=== PATIENT | male | born 1985 | race Caucasian/White ===

== ENCOUNTER → 2016-11-18 | Outpatient (REF) | payer BC | LOC: M LAB REF 10:18 | PROVIDERS: ATTEND Nurse Practitioner Family | DX: L08.9 Local infection of the skin and subcutaneous tissue, unspecified (principal) ==

== ENCOUNTER → 2017-05-06 | Outpatient (REF) | payer BC ==
[2017-05-06 13:26] LABS: BASO % 0.5 % (0.0-1.0); EOS # 0.2 10^3/uL (0.0-0.50); EOS % 3.2 % (0.0-3.0); IMMATURE GRANULOCYTE % 0.5 % (0-0); LYMPH # 2.2 10^3/uL (1.5-4.5); MEAN CORPUSCULAR HEMOGLOBIN 29.8 pg (27.0-33.0); MEAN CORPUSCULAR HGB CONC 34.7 g/dl (32.0-36.5); MEAN CORPUSCULAR VOLUME 85.7 fl (80.0-96.0); MONO # 0.5 10^3/uL (0.0-0.8); MONO % 7.7 % (0.0-5.0); NEUTROPHILS # 3.7 10^3/uL (1.8-7.7); NEUTROPHILS % 55.1 % (36.0-66.0); PLATELET COUNT, AUTOMATED 218 10^3/uL (150-450); RED CELL DISTRIBUTION WIDTH 11.9 % (11.5-14.5); WHITE BLOOD COUNT 6.6 10^3/uL (4.0-10.0)
[2017-05-06 13:56] LABS: ESTIMATED AVERAGE GLUCOSE 105 MG/DL (60-110)
[2017-05-08 00:06] LABS: Lyme Disease IgG/IgM Antibodie <0.91 ISR (0.00-0.90); Lyme Disease IgM Ab Quantitati <0.80 index (0.00-0.79)
== END ==
LOC: M SFHCPLAZ 11:58
DX: R53.83 Other fatigue (principal); E66.9 Obesity, unspecified
CPT/HCPCS: 84443

== ENCOUNTER → 2018-07-09 | Outpatient (REF) | payer BC ==
[2018-07-09 12:56] LABS: ALBUMIN 4.2 GM/DL (3.2-5.2); ALT/SGPT 47 U/L (12-78); BILIRUBIN,TOTAL 0.9 MG/DL (0.2-1.0); BLOOD UREA NITROGEN 20 MG/DL (7-18); CALCIUM LEVEL 8.8 MG/DL (8.5-10.1); CARBON DIOXIDE LEVEL 25 MEQ/L (21-32); CHLORIDE LEVEL 105 MEQ/L (98-107); CHOLESTEROL LEVEL 181 MG/DL (<200); CHOLESTEROL RISK RATIO 3.934 (<5); CREATININE FOR GFR 0.94 MG/DL (0.70-1.30); GLOMERULAR FILTRATION RATE > 60.0 (>60); GLUCOSE, FASTING 88 MG/DL (70-100); HDL CHOLESTEROL 46 MG/DL (>40); LDL CHOLESTEROL 89 MG/DL (<100); NON-HDL-C 135 MG/DL; POTASSIUM SERUM 4.1 MEQ/L (3.5-5.1); SODIUM LEVEL 139 MEQ/L (136-145); TOTAL PROTEIN 7.3 GM/DL (6.4-8.2); TRIGLYCERIDES LEVEL 232 MG/DL (<150)
[2018-07-09 13:16] LABS: HEMOGLOBIN A1c 5.3 %
== END ==
LOC: M SFHCPLAZ 09:47
PROVIDERS: ATTEND Family Medicine
DX: Z13.228 Encounter for screening for other metabolic disorders (principal)

== ENCOUNTER → 2018-12-12 | Outpatient (CLI) | payer BC ==
--- NOTE | 2018-12-12 09:15 | REP ---
Clinical: Pain. Technique: AP and angled views of the left clavicle. Findings: Sternoclavicular and acromioclavicular joints are intact and normal. The clavicle is intact without fracture. Surrounding soft tissues and osseous structures are normal. Calcified miliary nodules within the visualized lung noted. Impression: Normal clavicle. Calcified miliary nodules within the visualized left upper lung zone. Electronically Signed by Carter Jane MD 12/12/2018 09:06 A
--- NOTE | 2018-12-12 09:17 | REP ---
Clinical: Left posterior shoulder pain . Technique: Internal rotation, external rotation, and Y view left shoulder . Findings: No acute fracture or dislocation. The acromioclavicular and glenohumeral joints are intact. No periarticular calcifications or degenerative changes are appreciated. Sub acromial space is normal. Surrounding soft tissues are unremarkable. Presumed chronic calcified miliary nodules within the visualized left lung. Impression: Normal left shoulder radiographs. Presumed chronic calcified miliary nodules within the visualized left lung. Electronically Signed by Carter Jane MD 12/12/2018 09:09 A
== END ==
LOC: M WUC 08:45
PROVIDERS: ATTEND Physician Assistant
DX: R91.1 Solitary pulmonary nodule (principal)

== ENCOUNTER → 2019-03-30 | Outpatient (CLI) | payer BC ==
[~2019-03-30] MED LIST: CONRAY-43 43% 50ML VIAL (Q9960) As Ordered ONE; PROHANCE 279.3MG/ML 5ML VIAL (A9576) As Ordered ONE
--- NOTE | 2019-03-30 10:31 | REP ---
MRI LEFT SHOULDER: TECHNIQUE: Axial T2 fat sat, gradient echo, sagittal oblique T2 fat sat, coronal oblique T1, T2 fat sat. There is mild ill-defined high signal in the supraspinatus tendon compatible with mild tendinopathy/tendinitis. No rotator cuff tendon tear is seen. There are mild hypertrophic degenerative changes of the acromioclavicular joint with mild subchondral marrow edema and cystic changes of the distal clavicle. Acromion is type 2. Biceps tendon is within the bicipital groove with no tenosynovitis. There is no Hill-Sachs deformity. The deltoid muscle demonstrates no abnormal signal. There does appear to be fraying at the biceps labral complex. Otherwise no definite labral tear is seen. A few tiny subcortical cysts are seen in the lateral humeral head. There is a normal amount of joint fluid. No paralabral cyst is seen. IMPRESSION: Patient refused the scheduled arthrogram procedure. There is mild supraspinatus tendinopathy/tendinitis with no evidence of rotator cuff tendon tear. There are mild hypertrophic degenerative changes acromioclavicular joint with a type 2 acromion. There is fraying of the biceps labral complex. Otherwise no definite labral tear. A few tiny subcortical cysts lateral humeral head. Electronically Signed by Abner Ramirez MD 03/31/2019 11:17 A
== END ==
LOC: M RADPRO 06:34
PROVIDERS: ATTEND Orthopaedic Surgery Sports Medicine
DX: M25.512 Pain in left shoulder (principal); M75.92 Shoulder lesion, unspecified, left shoulder; S43.109A Unspecified dislocation of unspecified acromioclavicular joint, initial encounter; X58.XXXA Exposure to other specified factors, initial encounter; Y93.89 Activity, other specified; Y99.8 Other external cause status

== ENCOUNTER → 2019-04-12 | Outpatient (CLI) | payer BC | LOC: M LRY 09:47 | PROVIDERS: ATTEND Family Medicine | DX: Z53.9 Procedure and treatment not carried out, unspecified reason (principal) ==

== ENCOUNTER → 2019-04-12 | Outpatient (CLI) | payer BC ==
--- NOTE | 2019-04-12 10:38 | REP ---
Clinical: Lung nodules. Technique: PA and lateral. Comparison: None available. Findings: Innumerable miliary nodules are noted throughout the bilateral lung gomez likely representing calcified granulomata. Differential diagnosis would include sequelae from prior granulomas disease as well as prior metastatic disease including thyroid and/or testicular malignancy. Mediastinum and cardiac silhouette normal. No focal consolidation. No effusion. No pneumothorax. Skeletal structures intact. Impression: Diffuse miliary nodules likely calcified. No prior examination available for comparison. Electronically Signed by Carter Jane MD 04/12/2019 10:30 A
== END ==
LOC: M LRY 09:57
PROVIDERS: ATTEND Family Medicine
DX: R91.8 Other nonspecific abnormal finding of lung field (principal)

== ENCOUNTER → 2019-05-02 | Outpatient (CLI) | payer BC ==
--- NOTE | 2019-05-02 08:34 | REP ---
Clinical: Follow-up pulmonary nodule. Technique: Axial noncontrast images from the thoracic inlet to the upper abdomen with coronal and sagittal re-formations. Findings: Innumerable scattered bilateral calcified nodules measure up to approximately 3 mm and findings are most consistent with sequelae of prior granulomatous disease. No significant nodule or mass lesion. No consolidation. No effusion. There is a small subtle 2 cm ground-glass non solid density along the posterior periphery of the right lower lobe (image 52) which is otherwise nonspecific. No significant adenopathy. Mediastinum demonstrates normal thoracic aorta, pulmonary vasculature and heart/pericardium. Surrounding musculoskeletal structures are intact. Limited upper abdomen demonstrates normal bilateral adrenal glands. Impression: 1. Calcified granulomata consistent with prior granulomatous disease. 2. 2 cm non solid ground-glass density in the posterior right lower lobe is otherwise nonspecific. Consider reevaluation in 6-9 months. Electronically Signed by Carter Jane MD 05/02/2019 08:26 A
== END ==
LOC: M RAD 06:46
PROVIDERS: ATTEND Family Medicine
DX: R91.8 Other nonspecific abnormal finding of lung field (principal)

== ENCOUNTER → 2019-05-06 | Outpatient (REF) | payer BC ==
[2019-05-06 11:56] LABS: APPEARANCE, URINE CLEAR (CLEAR); BACTERIA, URINE AUTO NEGATIVE (NEGATIVE); BILIRUBIN, URINE AUTO NEGATIVE (NEGATIVE); BLOOD, URINE BLOOD NEGATIVE (NEGATIVE); COLOR, URINE YELLOW (YELLOW); GLUCOSE, URINE (UA) AUTO NEGATIVE (NEGATIVE); KETONE, URINE AUTO TRACE mg/dL (NEGATIVE); LEUKOCYTE ESTERASE, URINE AUTO NEGATIVE (NEGATIVE); NITRITE, URINE AUTO NEGATIVE (NEGATIVE); PROTEIN, URINE AUTO NEGATIVE (NEGATIVE); RBC, URINE AUTO 0 /HPF (0-3); SPECIFIC GRAVITY URINE AUTO 1.019 (1.002-1.035); SQUAMOUS EPITHELIAL CELL UR AU 0 /HPF (0-6); UROBILINOGEN, URINE AUTO 0.2 mg/dL (0.0-2.0); WBC, URINE AUTO 0 /HPF (0-3)
[2019-05-06 11:58] LABS: BASO % 0.6 % (0.0-1.0); EOS # 0.1 10^3/uL (0.0-0.5); EOS % 1.9 % (0.0-3.0); HEMATOCRIT 45.6 % (42.0-52.0); HEMOGLOBIN 15.3 g/dl (13.5-17.5); LYMPH # 1.9 10^3/uL (1.5-5.0); LYMPH % 37.7 % (24.0-44.0); MEAN CORPUSCULAR HEMOGLOBIN 29.6 pg (27.0-33.0); MEAN CORPUSCULAR HGB CONC 33.6 g/dl (32.0-36.5); MEAN CORPUSCULAR VOLUME 88.2 fl (80.0-96.0); MONO # 0.4 10^3/uL (0.0-0.8); MONO % 7.2 % (0.0-5.0); NEUTROPHILS # 2.7 10^3/uL (1.5-8.5); NEUTROPHILS % 51.8 % (36.0-66.0); PLATELET COUNT, AUTOMATED 201 10^3/uL (150-450); RED BLOOD COUNT 5.17 10^6/uL (4.30-6.10); WHITE BLOOD COUNT 5.2 10^3/uL (4.0-10.0)
[2019-05-06 12:09] LABS: ALBUMIN 4.2 GM/DL (3.2-5.2); ALT/SGPT 47 U/L (12-78); BILIRUBIN,TOTAL 0.6 MG/DL (0.2-1.0); BLOOD UREA NITROGEN 16 MG/DL (7-18); C REACTIVE PROTEIN QUANTITATIV < 0.30 MG/DL (0.00-0.30); CARBON DIOXIDE LEVEL 24 MEQ/L (21-32); CHLORIDE LEVEL 108 MEQ/L (98-107); GLOMERULAR FILTRATION RATE > 60.0 (>60); GLUCOSE, FASTING 118 MG/DL (70-100); POTASSIUM SERUM 3.9 MEQ/L (3.5-5.1); SODIUM LEVEL 140 MEQ/L (136-145); TOTAL PROTEIN 7.4 GM/DL (6.4-8.2)
[2019-05-06 12:29] LABS: ERYTHROCYTE SEDIMENTATION RATE 2 mm/hr (0-15)
[2019-05-06 12:54] LABS: HIV 1&2 SCREEN CENTAUR NEGATIVE (NEGATIVE)
== END ==
LOC: M SFHCLERA 09:02
PROVIDERS: ATTEND Family Medicine
DX: R93.89 Abnormal findings on diagnostic imaging of other specified body structures (principal); J84.10 Pulmonary fibrosis, unspecified

== ENCOUNTER → 2019-05-09 | Outpatient (CLI) | payer BC ==
--- NOTE | 2019-05-09 14:33 | PFTRPT ---
Site: [facility], [address] [place], [address] ID: [id number] Name: MARY JANE LYNN Visit Date: 05/09/2019 Second ID: [id number] Referring Doctor: KATERINA ARMENTA DO Reviewing Doctor: Roque Alvarado MD Evaporator Supervisor: Seymour RENDON RRT Age: 33 : 1985 Sex: Male Race: Height: 66.00 Inches Weight: 220.00 Lbs BSA: 2.08 Order IDs: [id number] Requested Test(s): <RESP-PFT.DLCO> Diagnosis: R91.8 test meet the ATS standards for acceptability and repeatability. Pt was given four puffs of albuterol for postbronchodilator. Review Status: Not Reviewed Pre-Bronch Post-Bronch Pred Actual %Pred Actual %Chng SPIROMETRY FVC (L) 4.73 4.82 101 4.66 -3 FEV1 (L) 3.83 4.38 114 4.24 -3 FEV1/FVC (%) 81 91 112 91 FEF 25% (L/sec) 8.26 10.70 129 10.21 -4 FEF 50% (L/sec) 5.92 8.31 140 8.31 FEF 75% (L/sec) 2.03 3.31 162 2.86 -13 FEF 25-75% (L/sec) 3.82 6.63 173 6.39 -3 FEF Max (L/sec) 9.36 11.23 119 10.83 -3 FIVC (L) 4.93 4.89 FIF 50% (L/sec) 5.35 10.33 192 11.00 6 FIF Max (L/sec) 10.61 11.02 3 MVV (L/min) 157 165 105 Expiratory Time (sec) 6.67 6.82 2 Back Extrap Vol (L) 0.13 0.17 32 Time To FEFmax (sec) 0.060 0.086 42 LUNG VOLUMES SVC (L) 4.59 4.88 106 IC (L) 3.17 3.41 107 ERV (L) 1.42 1.47 103 TGV (L) 2.94 3.08 104 RV (Pleth) (L) 1.52 1.61 106 TLC (Pleth) (L) 6.11 6.49 106 RV/TLC (Pleth) (%) 25 25 99 DIFFUSION DLCOunc (ml/min/mmHg) 32.32 29.93 92 DL/VA (ml/min/mmHg/L) 5.29 4.97 94 VA (L) 6.11 6.02 98 BHT (sec) 9.76 IVC (L) 4.64 TLC (SB) (L) 6.17 AIRWAYS RESISTANCE Raw (cmH2O/L/s) 1.45 0.54 36 Gaw (L/s/cmH2O) 1.03 1.88 182 sRaw (cmH2O*s) 4.76 1.58 33 sGaw (1/cmH2O*s) 0.20 0.65 323
== END ==
LOC: M CARPUL 13:52
PROVIDERS: ATTEND Family Medicine
DX: R91.8 Other nonspecific abnormal finding of lung field (principal)

== ENCOUNTER → 2020-01-24 | Outpatient (CLI) | payer BC ==
--- NOTE | 2020-02-08 12:39 | REP ---
LEFT RIB SERIES: 01/24/20 CLINICAL: Contusion. TECHNIQUE: Frontal view of the chest with multiple views of the left hemithorax. FINDINGS: Frontal view of the chest demonstrates diffuse miliary nodules which require clinical/historical correlation. Multiple views of the left hemithorax demonstrates no definite acute displaced rib fracture. IMPRESSION: 1. Diffuse bilateral miliary nodules requiring correlation. Findings are relatively unchanged compared to 04/12/19. 2. No obvious left rib fracture. MTDD
== END ==
LOC: M WUC 12:53
PROVIDERS: ATTEND Physician Assistant
DX: S20.212A Contusion of left front wall of thorax, initial encounter (principal); X58.XXXA Exposure to other specified factors, initial encounter; Y92.89 Other specified places as the place of occurrence of the external cause; Y93.9 Activity, unspecified; Y99.9 Unspecified external cause status

== ENCOUNTER 2020-05-15 12:28 | Emergency (ER) | payer BC ==
[~2020-05-15] VITALS: Ht 172.7 cm; Wt 94.5 kg
[2020-05-15 12:28] VITALS: BP 154/97
[2020-05-15 13:44] LABS: BASO % 0.5 % (0.0-1.0); EOS # 0.2 10^3/uL (0.0-0.5); EOS % 2.9 % (0.0-3.0); HEMOGLOBIN 15.8 g/dl (13.5-17.5); LYMPH # 1.9 10^3/uL (1.5-5.0); LYMPH % 32.5 % (24.0-44.0); MEAN CORPUSCULAR HEMOGLOBIN 30.3 pg (27.0-33.0); MEAN CORPUSCULAR HGB CONC 34.3 g/dl (32.0-36.5); MEAN CORPUSCULAR VOLUME 88.3 fl (80.0-96.0); MONO # 0.4 10^3/uL (0.0-0.8); MONO % 7.1 % (0.0-5.0); NEUTROPHILS # 3.3 10^3/uL (1.5-8.5); NEUTROPHILS % 56.7 % (36.0-66.0); PLATELET COUNT, AUTOMATED 175 10^3/uL (150-450); RED BLOOD COUNT 5.21 10^6/uL (4.30-6.10); WHITE BLOOD COUNT 5.9 10^3/uL (4.0-10.0)
[2020-05-15 14:10] LABS: ALBUMIN 4.1 GM/DL (3.2-5.2); ALT/SGPT 32 U/L (12-78); BILIRUBIN,DIRECT 0.1 MG/DL (0.0-0.2); BILIRUBIN,TOTAL 0.6 MG/DL (0.2-1.0); BLOOD UREA NITROGEN 20 MG/DL (7-18); CARBON DIOXIDE LEVEL 26 MEQ/L (21-32); CHLORIDE LEVEL 111 MEQ/L (98-107); CREATININE FOR GFR 1.07 MG/DL (0.70-1.30); GLOMERULAR FILTRATION RATE > 60.0 (>60); GLUCOSE, FASTING 108 MG/DL (70-100); LIPASE 157 U/L (73-393); POTASSIUM SERUM 3.7 MEQ/L (3.5-5.1); SODIUM LEVEL 143 MEQ/L (136-145); TOTAL PROTEIN 6.9 GM/DL (6.4-8.2)
--- NOTE | 2020-05-15 14:20 | REP ---
INDICATION: infection. COMPARISON: None. TECHNIQUE: Four views. FINDINGS: Four views of the right foot demonstrate overall normal mineralization.. No fracture or subluxation is seen. No opaque foreign body noted. No soft tissue gas is seen. No acute bony erosive changes appreciated. IMPRESSION: Negative radiographs of the right foot.. <Electronically signed by Ricardo Taylor > 05/15/20 [id number]
[2020-05-15 15:03] LABS: C REACTIVE PROTEIN QUANTITATIV < 0.30 MG/DL (0.00-0.30)
[2020-05-15] MEDS ORDERED: PRED10TA2 PO (15:21)
[2020-05-15] MEDS ORDERED: SULF400T14 PO (15:21)
[2020-05-15 15:31] LABS: ERYTHROCYTE SEDIMENTATION RATE 1 mm/hr (0-15)
== END 2020-05-15 15:36 | disposition home or self-care (01) ==
LOC: M ED 12:28
DX: L30.9 Dermatitis, unspecified (principal); L03.115 Cellulitis of right lower limb

== ENCOUNTER → 2020-05-17 | Outpatient (REF) | payer BC ==
[~2020-05-17] MED LIST changes: -CONRAY-43 43% 50ML VIAL (Q9960) As Ordered ONE; +PRED10TA2 PO; -PROHANCE 279.3MG/ML 5ML VIAL (A9576) As Ordered ONE; +SULF400T14 PO
== END ==
LOC: M LAB REF 18:20
PROVIDERS: ATTEND Physician Assistant
DX: R21 Rash and other nonspecific skin eruption (principal)

== ENCOUNTER 2022-09-29 16:52 | Emergency (ER) | payer BC ==
[~2022-09-29] VITALS: Ht 172.7 cm; Wt 95.0 kg
[2022-09-29 16:53] VITALS: BP 163/105
[2022-09-29] MEDS ORDERED: LIDOCAINE 2% MDV 20ML VIAL SC ONE (18:35)
[2022-09-29] MEDS ORDERED: AMOX875T2 PO (19:30)
== END 2022-09-29 19:44 | disposition home or self-care (01) ==
LOC: M ED 16:52
DX: S01.511A Laceration without foreign body of lip, initial encounter (principal); S01.112A Laceration without foreign body of left eyelid and periocular area, initial encounter; S05.11XA Contusion of eyeball and orbital tissues, right eye, initial encounter; S02.2XXA Fracture of nasal bones, initial encounter for closed fracture; W20.8XXA Other cause of strike by thrown, projected or falling object, initial encounter; Z79.2 Long term (current) use of antibiotics